=== PATIENT | male | born 1995 | race Two or more races ===

== ENCOUNTER 2017-05-07 17:13 | Inpatient (IN) | payer OTHER ==
[~2017-05-07] VITALS: Ht 180.3 cm; Wt 65.8 kg
[2017-05-07] MEDS ORDERED: methylPREDNISolone SOD SUCC 125 MG/2 ML VL ONE (20:22)
[2017-05-07] MEDS ORDERED: diphenhdrAMINE HCL 50 MG/1 ML VL ONE (20:22)
[2017-05-07] MEDS ORDERED: cefTRIAXone SOD 1,000 MG VL ONE (20:23)
[2017-05-07] MEDS ORDERED: TETRACAINE HCL 0.5% OPTH(EYE) SOLN 4ML LEFTEYE ONE (20:30)
[2017-05-07] MEDS ORDERED: cefTRIAXone W LIDOCAINE 1 GM IM IM ONE (20:30)
[2017-05-07] MEDS ORDERED: methylPREDNISolone SOD SUCC 125 MG/2 ML VL IM ONE (20:30)
[2017-05-07] MEDS ORDERED: diphenhdrAMINE HCL 50 MG/1 ML VL IM ONE (20:30)
[2017-05-07] MEDS ORDERED: LIDOCAINE 1% HCL (LOCAL ANESTH.) INJ 20ML MDV ONE (20:32)
[2017-05-07] MEDS ORDERED: CLINDAMYCIN 900MG IV 50 ML IV ONE (20:45)
[2017-05-07] MEDS ORDERED: SODIUM CHLORIDE 0.9% 1,000 ML IV ONE (20:45)
[2017-05-07] MEDS ORDERED: FLUORESCEIN SOD 1 MG TEST STRIP LEFTEYE ONE (20:45)
[2017-05-07 21:20] LABS: Basophils # (auto) 0 uL; Basophils % (auto) 0.3 % (0.0-2.0); Eosinophils # (auto) 0 uL; Eosinophils % (auto) 0.3 % (0.0-7.0); Hematocrit 46.2 % (41.0-53.0); Hemoglobin 15.9 g/dL (13.5-17.5); Lymphocytes # (auto) 1.8 uL; Lymphocytes % (auto) 15.3 % (10.0-50.0); Mean Corpuscular Hemoglobin 32.6 pg (28.0-32.0); Mean Corpuscular Hgb Conc. 34.3 g/dL (32.0-36.0); Mean Corpuscular Volume 94.8 fL (80.0-100.0); Monocytes # (auto) 0.9 uL; Monocytes % (auto) 7.9 % (0.0-12.0); Neutrophils % (auto) 76.2 % (37.0-80.0); Nucleated Red Blood Cells % 0.1 %; Platelet Count (auto) 271 10^3/uL (140-450); Red Blood Cells 4.88 10^6/uL (4.5-5.90); Red Cell Distribution Width 13.4 % (11.8-14.3); White Blood Cell 11.8 10^3/uL (4.4-10.8)
[2017-05-07 21:37] LABS: INR 1.05 (0.9-1.15); Partial Thromboplastin Time 29.7 sec (22.64-33.71); Prothrombin Time 11.4 sec (9.37-12.3)
[2017-05-07 21:49] LABS: Albumin 4.4 g/dL (3.4-5.0); BUN/Creatinine Ratio 12.2; Calcium 9.3 mg/dL (8.5-10.1); Potassium 3.2 mmol/L (3.5-5.1)
[2017-05-07 21:51] LABS: Bilirubin, Total 1.1 mg/dL (0.2-1.0); Total Protein 7.7 g/dL (6.4-8.2)
[2017-05-07] MEDS ORDERED: ONDANSETRON HCL 4 MG/2 ML VIAL IV PRN (23:45)
[2017-05-08] VITALS (7 sets, daily range): BP systolic 106–132; BP diastolic 67–93
[2017-05-08 00:22] LABS: Basophils # (auto) 0 uL; Eosinophils # (auto) 0 uL; Hematocrit 46.5 % (41.0-53.0); Hemoglobin 15.9 g/dL (13.5-17.5); Lymphocytes # (auto) 0.5 uL; Lymphocytes % (auto) 4.2 % (10.0-50.0); Mean Corpuscular Hemoglobin 32.3 pg (28.0-32.0); Mean Corpuscular Hgb Conc. 34.2 g/dL (32.0-36.0); Mean Corpuscular Volume 94.5 fL (80.0-100.0); Monocytes # (auto) 0.1 uL; Monocytes % (auto) 0.7 % (0.0-12.0); Neutrophils # (auto) 10.5 uL; Neutrophils % (auto) 95.1 % (37.0-80.0); Platelet Count (auto) 257 10^3/uL (140-450); Red Blood Cells 4.93 10^6/uL (4.5-5.90); Red Cell Distribution Width 13.4 % (11.8-14.3)
[2017-05-08 00:36] LABS: Calcium 9.7 mg/dL (8.5-10.1); Potassium 3.8 mmol/L (3.5-5.1)
[2017-05-08] MEDS: HYDROcodone-ACET 5/325MG TAB PO PRN ×3 (01:22→18:05)
[2017-05-08] MEDS: CLINDAMYCIN 600MG IV 50 ML IV SCH ×3 (06:51→22:27)
[2017-05-08] MEDS: cefTRIAXone 1GM/10ml IVPUSH 10 ML IV SCH (09:03)
[2017-05-08] MEDS: NEOMYCIN-POLYMY-DEXAMETH 0.1% OPTH(EYE) SUSP 5ML EACHEYE SCH ×3 (14:52→22:27)
[2017-05-08] MEDS: diphenhdrAMINE HCL 25 MG CAP PO PRN ×2 (14:52→22:28)
[2017-05-09] MEDS: NEOMYCIN-POLYMY-DEXAMETH 0.1% OPTH(EYE) SUSP 5ML EACHEYE SCH ×6 (02:14→21:45)
[2017-05-09 05:00] VITALS: BP 97/65
[2017-05-09] MEDS: CLINDAMYCIN 600MG IV 50 ML IV SCH ×3 (06:04→21:45)
[2017-05-09 06:42] LABS: Basophils # (auto) 0 uL; Basophils % (auto) 0.4 % (0.0-2.0); Eosinophils # (auto) 0 uL; Eosinophils % (auto) 0.8 % (0.0-7.0); Hematocrit 45.9 % (41.0-53.0); Hemoglobin 15.5 g/dL (13.5-17.5); Lymphocytes # (auto) 2.3 uL; Lymphocytes % (auto) 45.9 % (10.0-50.0); Mean Corpuscular Hemoglobin 32.4 pg (28.0-32.0); Mean Corpuscular Hgb Conc. 33.7 g/dL (32.0-36.0); Mean Corpuscular Volume 96.4 fL (80.0-100.0); Monocytes # (auto) 0.6 uL; Monocytes % (auto) 11.2 % (0.0-12.0); Neutrophils # (auto) 2.1 uL; Neutrophils % (auto) 41.7 % (37.0-80.0); Nucleated Red Blood Cells % 0.1 %; Platelet Count (auto) 249 10^3/uL (140-450); Red Blood Cells 4.76 10^6/uL (4.5-5.90); Red Cell Distribution Width 13.4 % (11.8-14.3); White Blood Cell 5.1 10^3/uL (4.4-10.8)
[2017-05-09 07:05] LABS: Potassium 3.8 mmol/L (3.5-5.1)
[2017-05-09 07:08] LABS: BUN/Creatinine Ratio 15.8; Calcium 8.9 mg/dL (8.5-10.1)
[2017-05-09 09:00] VITALS: BP 106/60
[2017-05-09] MEDS: cefTRIAXone 1GM/10ml IVPUSH 10 ML IV SCH (09:31)
[2017-05-09] MEDS: ACETAMINOPHEN 500 MG TAB PO PRN ×2 (09:32→18:11)
[2017-05-09 13:00] VITALS: BP 104/74
[2017-05-09 17:00] VITALS: BP 103/54
[2017-05-09] MEDS: diphenhdrAMINE HCL 25 MG CAP PO PRN (20:15)
[2017-05-09 22:00] VITALS: BP 99/59
[2017-05-10] MEDS: NEOMYCIN-POLYMY-DEXAMETH 0.1% OPTH(EYE) SUSP 5ML EACHEYE SCH ×3 (02:00→09:05)
[2017-05-10 05:00] VITALS: BP 112/65
[2017-05-10] MEDS: CLINDAMYCIN 600MG IV 50 ML IV SCH (06:10)
[2017-05-10 08:00] VITALS: BP 106/69
[2017-05-10 08:45] VITALS: BP 106/69
[2017-05-10] MEDS: cefTRIAXone 1GM/10ml IVPUSH 10 ML IV SCH (09:05)
[2017-05-10] MEDS: ACETAMINOPHEN 500 MG TAB PO PRN (09:08)
== END 2017-05-10 11:00 | disposition home or self-care (01) | DRG 383 ==
LOC: ER 17:18 → OVERFLOW 17:19 → CENTRAL 05-08 00:50
PROVIDERS: ADMIT Nurse Practitioner Family; ATTEND Internal Medicine
DX: L03.213 Periorbital cellulitis (principal); D72.829 Elevated white blood cell count, unspecified; J32.0 Chronic maxillary sinusitis
CPT/HCPCS: 36415; 70486; 71046; 80048; 80053; 85025; 85610; 85730; 87040; 96365; 96372; J0696; J2001; J3490